=== PATIENT | male | born 1975 ===

== ENCOUNTER → 2023-10-01 06:16 | Day surgery (SDC) | payer BC, SELFPAY ==
[2023-10-01 07:21] LABS: Glucose - Point of Care 129 mg/dl (70-99)
== END ==
LOC: GI 06:16
PROVIDERS: ATTENDING PHYSICIAN Internal Medicine Gastroenterology; FAMILY PHYSICIAN Family Medicine
DX: Z12.11 Encounter for screening for malignant neoplasm of colon (principal); Z83.710 Family history of adenomatous and serrated polyps; K64.8 Other hemorrhoids; K57.30 Diverticulosis of large intestine without perforation or abscess without bleeding; K63.5 Polyp of colon
CPT/HCPCS: 45380; 88305; 82962